=== PATIENT | male | born 1965 | race Caucasian/White ===

== ENCOUNTER → 2024-09-17 10:12 | Outpatient (REF) | payer OTHER, SELFPAY | LOC: HWRAD 10:12 | PROVIDERS: ATTENDING PHYSICIAN Nurse Practitioner Adult Health; FAMILY PHYSICIAN Family Medicine | DX: M47.816 Spondylosis without myelopathy or radiculopathy, lumbar region (principal); M48.062 Spinal stenosis, lumbar region with neurogenic claudication; M54.16 Radiculopathy, lumbar region | CPT/HCPCS: 72110; 72131 ==

== ENCOUNTER 2024-12-14 08:31 | Outpatient (RCR) | payer OTHER, SELFPAY | END 2024-12-14 23:59 | disposition home or self-care (01) | LOC: RPT 08:31 | PROVIDERS: ATTENDING PHYSICIAN Student in an Organized Health Care Education/Training Program; FAMILY PHYSICIAN Family Medicine | DX: Z47.89 Encounter for other orthopedic aftercare (principal); Z73.6 Limitation of activities due to disability; M62.81 Muscle weakness (generalized); R26.89 Other abnormalities of gait and mobility; M43.22 Fusion of spine, cervical region; Z96.642 Presence of left artificial hip joint | CPT/HCPCS: 97110; 97112; 97162; 97530 ==

== ENCOUNTER 2025-01-08 11:48 | Outpatient (RCR) | payer OTHER, SELFPAY | END 2025-01-08 23:59 | disposition home or self-care (01) | LOC: RPT 11:48 | PROVIDERS: ATTENDING PHYSICIAN Student in an Organized Health Care Education/Training Program; FAMILY PHYSICIAN Family Medicine | DX: Z47.89 Encounter for other orthopedic aftercare (principal); Z73.6 Limitation of activities due to disability; M62.81 Muscle weakness (generalized); R26.89 Other abnormalities of gait and mobility; M54.9 Dorsalgia, unspecified; M43.22 Fusion of spine, cervical region; Z96.642 Presence of left artificial hip joint | CPT/HCPCS: 97110; 97112; 97530 ==

== ENCOUNTER 2025-02-01 07:48 | Outpatient (RCR) | payer OTHER, SELFPAY | END 2025-02-01 23:59 | disposition home or self-care (01) | LOC: RPT 07:48 | PROVIDERS: ATTENDING PHYSICIAN Student in an Organized Health Care Education/Training Program; FAMILY PHYSICIAN Family Medicine | DX: Z47.89 Encounter for other orthopedic aftercare (principal); Z73.6 Limitation of activities due to disability; M62.81 Muscle weakness (generalized); M54.9 Dorsalgia, unspecified; R26.89 Other abnormalities of gait and mobility; M43.22 Fusion of spine, cervical region; Z96.642 Presence of left artificial hip joint | CPT/HCPCS: 97110; 97112 ==